=== PATIENT | female | born 1995 | race Caucasian/White ===

== ENCOUNTER 2018-10-03 14:25 | Emergency (ER) | payer OTHER ==
[~2018-10-03] VITALS: Ht 167.6 cm; Wt 64.4 kg
== END 2018-10-03 17:33 | disposition home or self-care (01) ==
LOC: ED 14:25
DX: R56.9 Unspecified convulsions (principal); S01.01XA Laceration without foreign body of scalp, initial encounter; W18.2XXA Fall in (into) shower or empty bathtub, initial encounter
CPT/HCPCS: 12002; 70450; 90471; 90715; 99284-25